=== PATIENT | female | born 1995 | race Hispanic/Latino ===

== ENCOUNTER 2018-02-20 17:08 | Emergency (ER) | payer BC ==
[~2018-02-20] VITALS: Ht 154.9 cm; Wt 73.5 kg
[2018-02-20 18:40] LABS: CLARITY,URINE CLEAR (CLEAR); COLOR,URINE YELLOW (YELLOW)
[2018-02-20 18:41] LABS: BILIRUBIN,URINE NEGATIVE (NEGATIVE); KETONES,URINE TRACE (NEGATIVE); LEUKOCYTE ESTERASE ,URINE NEGATIVE (NEGATIVE); NITRITE,URINE NEGATIVE (NEGATIVE); PREGNANCY TEST, URINE NEGATIVE (NEGATIVE); PROTEIN,URINE DIPSTICK NEGATIVE (NEGATIVE); URINE UROBILINOGEN 0.2 mg/dL (0.2 - 1)
[2018-02-20] MEDS ORDERED: ONDANSETRON HCL INJ 2 MG/ML VIAL IV STA (18:44)
[2018-02-20] MEDS ORDERED: MORPHINE SULFATE INJ 4 MG/ML INJ IV STA (18:44)
[2018-02-20] MEDS ORDERED: SODIUM CHLORIDE 0.9% 1000ML 1,000 ML IV STA (18:44)
[2018-02-20 18:50] LABS: BACTERIA,URINE FEW /HPF; EPITHELIAL CELLS,URINE FEW /LPF; MUCUS,URINE FEW (RARE); RBC,URINE 0-5 /HPF (0-5); WBC,URINE (MAN) 0-5 /HPF (0-5)
[2018-02-20 18:59] LABS: BASOPHILS # (AUTO) 0.1 (0.0-0.1); BASOPHILS % 0.8 % (0.0-1.0); EOSINOPHILS # (AUTO) 0.1 (0.0-0.4); EOSINOPHILS % 0.6 % (0.0-6.0); HEMOGLOBIN 12.4 g/dL (12.0-16.0); LYMPHOCYTES # (AUTO) 2.2 (1.0-3.2); LYMPHOCYTES % 24.8 % (18.0-39.1); MEAN CORPUSCULAR HEMOGLOBIN 27.9 pg (28-32); MEAN CORPUSCULAR HGB CONC 32.6 g/dL (31-35); MEAN CORPUSCULAR VOLUME 85.6 fL (81-99); MONOCYTES # (AUTO) 0.7 (0.2-0.8); MONOCYTES % 8.2 % (4.4-11.3); NEUTROPHILS # (AUTO) 5.7 (2.1-6.9); NEUTROPHILS % 65.3 % (38.7-80.0); PLATELET COUNT 273 x10e3/uL (140-360); RED BLOOD COUNT 4.44 x10e6/uL (3.6-5.1); RED CELL DISTRIBUTION WIDTH 13.2 % (11.7-14.4)
[2018-02-20 19:15] LABS: ALANINE AMINOTRANSFERASE 24 IU/L (0-55); ALBUMIN 4.5 g/dL (3.5-5.0); ALBUMIN/GLOBULIN RATIO 1.3 (0.8-2.0); ALKALINE PHOSPHATASE 101 IU/L (40-150); ANION GAP 13.7 mmol/L (8-16); BLOOD UREA NITROGEN 10 mg/dL (7-26); BUN/CREATININE RATIO 14 (6-25); CALCIUM 9.4 mg/dL (8.4-10.2); CARBON DIOXIDE 23 mmol/L (22-29); CHLORIDE 102 mmol/L (98-107); CREATININE, SERUM 0.72 mg/dL (0.57-1.11); EST GLOMERULAR FILTRATION RATE > 60 ML/MIN (60-); GLUCOSE 82 mg/dL (74-118); POTASSIUM 3.7 mmol/L (3.5-5.1); SODIUM 135 mmol/L (136-145)
--- NOTE | 2018-02-20 20:10 | Diagnostic Imaging Report ---
CT Abdomen And Pelvis with Intravenous Contrast INDICATION: Right-sided abdominal pain, fever, vomiting, nausea TECHNIQUE: Thin collimation axial images obtained from the diaphragm to the level of the pubic symphysis following the uneventful administration of 100 cc of low osmolar, nonionic intravenous contrast. RADIATION DOSE: Total DLP: 336.7 mGy*cm Estimated effective dose: (DLP x 0.015 x size factor) mSv CTDIvol has been reviewed. It is below the limits set by the Radiation Protocol Committee (RPC). COMPARISON: None. ABDOMEN FINDINGS: Lung Bases: Clear. The visualized portions of the mediastinum are normal.. Liver: Normal attenuation. No evidence for mass. Gallbladder: Present and appears normal. No biliary ductal dilatation. Pancreas: Normal attenuation without mass or ductal dilatation. Spleen: Normal in size. No evidence of mass.. Adrenal Glands: No evidence for mass. Kidneys: Right: Normal enhancement. Punctate low attenuating lesion in the lower pole is suggestive of a cyst. No enhancing mass. No hydronephrosis. Left: Normal enhancement. No mass. No hydronephrosis. Lymph Nodes: No enlarged abdominal or periaortic lymph nodes.. Aorta: Normal in diameter. No free fluid or fluid collection. PELVIS FINDINGS: Bowel: Stomach: Normal.. Small Bowel: Normal in caliber with normal wall thickness. Large Bowel: Normal in caliber with normal wall thickness. No pericolonic inflammation. Appendix: Normal appendix. Bladder: Normal. The uterus is present and normal in morphology. There is a corpus luteum in the right ovary. Small amount of pelvic ascites. No loculated fluid collection. Bones: No focal osseous lesions. Soft tissues: Unremarkable.. IMPRESSION: 1. No evidence for bowel obstruction or inflammation. Normal appendix. 2. Corpus luteum in the right ovary with a small amount of pelvic ascites. Signed by: Dr. Haider Yepez MD on 02/20/2018 8:07 PM
[2018-02-20] MEDS ORDERED: IOPAMIDOL 370 MG/ML 200 ML INFUS..BTL INJ ONE (22:47)
[2018-02-20] MEDS ORDERED: SODIUM CHLORIDE 0.9% 50ML 50 ML ONE (22:47)
--- NOTE | 2018-02-20 23:21 | Diagnostic Imaging Report ---
EXAM: Transabdominal pelvic ultrasound with duplex imaging INDICATION: Abdominal pain, nausea COMPARISON: CT of the abdomen and pelvis February 20, 2018 TECHNIQUE: Transverse and sagittal transabdominal ramsey-scale and color doppler sonographic images of the pelvis were obtained. Duplex imaging was performed with spectral waveform analysis of the right ovarian arterial and venous flow. The left ovary was not identified. CLINICAL HISTORY: 22 year old A0 Last menstrual period: January 12, 2018 FINDINGS: UTERUS: 6.8 x 4 x 6.3 cm, retroverted Cervix not well seen. No uterine masses. ENDOMETRIUM: 1.2 cm Homogeneous echotexture without focal thickening. RIGHT OVARY: 2.9 x 1.9 x 2.8 cm, Normal flow by color Doppler and spectral waveform analysis of the arterial and venous flow. No abnormal right ovarian cyst or mass. LEFT OVARY: Not visualized No adnexal masses. No free fluid in the cul-de-sac seen on transabdominal view. IMPRESSION: Normal transabdominal pelvic ultrasound. No evidence of right ovarian torsion. The left ovary could not be visualized. Signed by: Dr. Jessica Espino M.D. on 02/20/2018 11:18 PM
[2018-02-20 23:55] VITALS: BP 119/85
== END 2018-02-21 00:11 | disposition home or self-care (01) ==
LOC: ER 17:08
DX: R10.31 Right lower quadrant pain (principal); R11.0 Nausea
CPT/HCPCS: 36415; 74177; 76856; 80053; 81001; 81025; 85025; 87086; 93976; 99284; Q9967

== ENCOUNTER 2018-06-03 19:34 | Emergency (ER) | payer BC ==
[~2018-06-03] VITALS: Ht 154.9 cm; Wt 73.5 kg
[2018-06-03] MEDS ORDERED: SODIUM CHLORIDE 0.9% 1000ML 1,000 ML ONE (20:15)
[2018-06-03] MEDS ORDERED: PROMETHAZINE 25MG/ NS 50ML (IV) IV ONE (20:30)
[2018-06-04 00:51] VITALS: BP 122/76
--- OUTSIDE RECORDS SUMMARY | 2018-06-05 14:09 | XMS REPORT ---
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 Allergies, Adverse Reactions, Alerts This patient has no known allergies or adverse reactions. Medications This patient has no known medications. Results Test Description Test Time Test Comments Text Results Atomic Results Result Comments US PELVIC DOPPLER LTD 2018-02-20 23:12:00 [place] [address] Patient Name: DONNA RAY MR #: [id number] : 1995 Age/Sex: 22/F Req #: [id number] Adm Physician: Ordered by: MADHAV HAAS [employer] Report #: [id number] Location: ER Room/Bed: Procedure: [id number] US/US PELVIC DOPPLER LTD Exam Date: 02/20/18 Exam Time: 2129 REPORT STATUS: Signed EXAM: Transabdominal pelvic ultrasound with duplex imaging INDICATION: Abdominal pain, nausea COMPARISON: CT of the abdomen and pelvis February 20, 2018 TECHNIQUE: Transverse and sagittal transabdominal ramsey-scale and color doppler sonographic images of the pelvis were obtained. Duplex imaging was performed with spectral waveform analysis of the right ovarian arterial and venous flow. The left ovary was not identified. CLINICAL HISTORY: 22 year old A0 Last menstrual period: January 12, 2018 FINDINGS: UTERUS: 6.8 x 4 x 6.3 cm, retroverted Cervix not well seen. No uterine masses. ENDOMETRIUM: 1.2 cm Homogeneous echotexture without focal thickening. RIGHT OVARY: 2.9 x 1.9 x 2.8 cm, Normal flow by color Doppler and spectral waveform analysis of the arterial and venous flow. No abnormal right ovarian cyst or mass. LEFT OVARY: Not visualized No adnexal masses. No free fluid in the cul-de-sac seen on transabdominal view. IMPRESSION: Normal transabdominal pelvic ultrasound. No evidence of right ovarian torsion. The left ovary could not be visualized. Signed by: Dr. Lucius Espino M.D. on 02/20/2018 11:18 PM Dictated By: LUCIUS ESPINO MD 150 Transcribed By: JODIE on 02/28/18 1503 COPY TO: MADHAV HAAS NP US PELVIS COMPLETE NON OB 2018-02-20 23:12:00 [place] [address] Patient Name: DONNA RAY MR #: [id number] : 1995 Age/Sex: 22/F Req #: [id number] Adm Physician: Ordered by: CHAMP CRAWFORD MD Report #: [id number] Location: ER Room/Bed: Procedure: [id number] US/US PELVIS COMPLETE NON OB Exam Date: Exam Time: REPORT STATUS: Signed EXAM: Transabdominal pelvic ultrasound with duplex imaging INDICATION: Abdominal pain, nausea COMPARISON: CT of the abdomen and pelvis February 20, 2018 TECHNIQUE: Transverse and sagittal transabdominal ramsey-scale and color doppler sonographic images of the pelvis were obtained. Duplex imaging was performed with spectral waveform analysis of the right ovarian arterial and venous flow. The left ovary was not identified. CLINICAL HISTORY: 22 year old A0 Last menstrual period: January 12, 2018 FINDINGS: UTERUS: 6.8 x 4 x 6.3 cm, retroverted Cervix not well seen. No uterine masses. ENDOMETRIUM: 1.2 cm Homogeneous echotexture without focal thickening. RIGHT OVARY: 2.9 x 1.9 x 2.8 cm, Normal flow by color Doppler and spectral waveform analysis of the arterial and venous flow. No abnormal right ovarian cyst or mass. LEFT OVARY: Not visualized No adnexal masses. No free fluid in the cul-de-sac seen on transabdominal view. IMPRESSION: Normal transabdominal pelvic ultrasound. No evidence of right ovarian torsion. The left ovary could not be visualized. Signed by: Dr. Lucius Espino M.D. on 02/20/2018 11:18 PM Dictated By: LUCIUS ESPINO MD 1503 Transcribed By: JODIE on 02/28/18 1503 COPY TO: CHAMP CRAWFORD MD CT ABDOMEN/PELVIS W 2018-02-20 20:03:00 [place] [address] Patient Name: DONNA RAY MR #: [id number] : 1995 Age/Sex: 22/F Req #: [id number] Adm Physician: Ordered by: MADHAV HAAS NP Report #: [id number] Location: ER Room/Bed: Procedure: [id number] CT/CT ABDOMEN/PELVIS W Exam Date: 02/20/18 Exam Time: 0 REPORT STATUS: Signed CT Abdomen And Pelvis with Intravenous Contrast INDICATION: Right-sided abdominal pain, fever, vomiting, nausea TECHNIQUE: Thin collimation axial images obtained from the diaphragm to the level of the pubic symphysis following the uneventful administration of 100 cc of low osmolar, nonionic intravenous contrast. RADIATION DOSE: Total DLP: 336.7 mGy*cm Estimated effective dose: (DLP x 0.015 x size factor) mSv CTDIvol has been reviewed. It is below the limits set by the Radiation Protocol Committee (RPC). COMPARISON: None. ABDOMEN FINDINGS: Lung Bases: Clear. The visualized portions of the mediastinum are normal.. Liver: Normal attenuation. No evidence for mass. Gallbladder: Present and appears normal. No biliary ductal dilatation. Pancreas: Normal attenuation without mass or ductal dilatation. Spleen: Normal in size. No evidence of mass.. Adrenal Glands: No evidence for mass. Kidneys: Right: Normal enhancement. Punctate low attenuating lesion in the lower pole is suggestive of a cyst. No enhancing mass. No hydronephrosis. Left: Normal enhancement. No mass. No hydronephrosis. Lymph Nodes: No enlarged abdominal or periaortic lymph nodes.. Aorta: Normal in diameter. No free fluid or fluid collection. PELVIS FINDINGS: Bowel: Stomach: Normal.. Small Bowel: Normal in caliber with normal wall thickness. Large Bowel: Normal in caliber with normal wall thickness. No pericolonic inflammation. Appendix: Normal appendix. Bladder: Normal. The uterus is present and normal in morphology. There is a corpus luteum in the right ovary. Small amount of pelvic ascites. No loculated fluid collection. Bones: No focal osseous lesions. Soft tissues: Unremarkable.. IMPRESSION: 1. No evidence for bowel obstruction or inflammation. Normal appendix. 2. Corpus luteum in the right ovary with a small amount of pelvic ascites. Signed by: Dr. Lupe Yepez MD on 02/20/2018 8:07 PM Dictated By: LUPE YEPEZ MD 06 Transcribed By: JODIE on 02/20/182006 COPY TO: MADHAV HAAS NP
== END 2018-06-03 22:05 | disposition home or self-care (01) ==
LOC: FSED 19:34
DX: R55 Syncope and collapse (principal); R00.2 Palpitations; K52.9 Noninfective gastroenteritis and colitis, unspecified; E86.1 Hypovolemia
CPT/HCPCS: 93005; 99283; J2550; J7030

== ENCOUNTER 2018-06-04 02:52 | Emergency (ER) | payer BC ==
[~2018-06-04] VITALS: Ht 154.9 cm; Wt 73.5 kg
[2018-06-04] MEDS ORDERED: DIPHENHYDRAMINE HCL 25 MG CAP PO ONE (03:45)
[2018-06-04 05:52] VITALS: BP 106/60
== END 2018-06-04 04:31 | disposition home or self-care (01) ==
LOC: FSED 02:52
DX: R20.2 Paresthesia of skin (principal)
CPT/HCPCS: 99282